=== PATIENT | female | born 1945 | race Caucasian/White ===

== ENCOUNTER → 2017-01-26 | Outpatient (CLI) | payer MEDICARE, BC | LOC: MC.RAD 07:00 | DX: Z12.31 Encounter for screening mammogram for malignant neoplasm of breast (principal) ==

== ENCOUNTER → 2018-02-24 | Outpatient (CLI) | payer MEDICARE, BC | LOC: MC.RAD 07:33 | DX: Z12.31 Encounter for screening mammogram for malignant neoplasm of breast (principal) ==

== ENCOUNTER 2018-11-03 06:06 | Inpatient (IN) | payer MEDICARE, BC ==
[~2018-11-03] VITALS: Ht 170.2 cm; Wt 83.5 kg
[2018-11-03] VITALS (309 sets, daily range): BP systolic 85–148; BP diastolic 61–98; PULSE 80–96; TEMP 98–98.7; O2SAT 90–100
[2018-11-03] MEDS ORDERED: PRINIVIL5 MG PO (06:29)
[2018-11-03 06:32] LABS: BASO % 0.3 % (0.0-2.0); EOS % 0.3 % (0-4.0); GRAN # 5.2 (1.4-6.5); GRAN % 82.2 % (42.2-75.2); HEMATOCRIT 39.8 % (37.0-47.0); HEMOGLOBIN 13.2 g/dl (12.5-16.0); LYMPH # 0.8 (1.2-3.4); LYMPH % 12.4 % (20.0-51.0); MEAN CELL VOLUME 96 fl (80.0-100.0); MEAN CORPUSCULAR HEMOGLOBIN 32 pg (27.0-31.0); MEAN CORPUSCULAR HGB CONC 33 g/dl (33.0-37.0); MEAN PLATELET VOLUME 11.4 fl (7.4-10.4); MONO # 0.3 (0.1-0.6); MONO % 4.3 % (1.7-9.3); PLATELET COUNT 183 K/mm3 (130-400); RED BLOOD COUNT 4.16 M/mm3 (4.10-5.30); REDCELL DISTRIBUTION WIDTH-CV 12.5 % (11.5-14.5)
[2018-11-03 06:40] LABS: INR 0.9 (0.8-3.0); PROTHROMBIN TIME 10.6 SECONDS (9.7-12.8)
[2018-11-03 06:42] LABS: PARTIAL THROMBOPLASTIN TIME 30.6 SECONDS (26.0-37.0)
[2018-11-03 06:59] LABS: ALBUMIN 3.8 gm/dL (3.5-5.0); BILIRUBIN,TOTAL 0.3 mg/dL (0.0-1.0); CALCIUM 8.2 mg/dL (8.4-10.2); CREATININE, serum 0.75 mg/dL (0.52-1.25); POTASSIUM 3.9 mmol/L (3.4-5.0); TOTAL PROTEIN 6.5 gm/dL (6.4-8.2)
[2018-11-03 07:17] LABS: TROPONIN-I 0.438 ng/mL (0.000-0.035)
--- NOTE | 2018-11-03 09:09 | NUR ---
Report received from ERNESTO Fontaine. Patient going to metallurgical laboratory assistant prior to coming to the ICU.
--- NOTE | 2018-11-03 09:33 | NUR ---
SEE EDWARD FOR ALL MEDICATION ADMIN TIMES AND RASS SCORING FOR INTRA AND POST SEDATION DOCUMENATION
--- NOTE | 2018-11-03 11:15 | NUR ---
Patient admitted to ICU#1 via bed from medical laboratory technologist. Right femoral groin site soft without hematoma, dressing with small amount of drainage noted, Safeguard in place. Patient instructed to keep head flat on pillow and right leg straight. Patient verbalized understanding. Assessment complete. Call light within reach.
--- NOTE | 2018-11-03 12:15 | NUR ---
earth science technical officer in room for echo.
--- NOTE | 2018-11-03 12:45 | NUR ---
Patient reports chest pain 3/10, back pain 4/10 and still nauseaous. Family at bedside. Dr. Hernandez was notified. O2 decreased to 13L/NRB.
--- NOTE | 2018-11-03 13:30 | NUR ---
Patient placed on OM at 7L, satting 93%.
--- NOTE | 2018-11-03 14:49 | NUR ---
Patient reports "not feeling any better."
--- NOTE | 2018-11-03 16:50 | NUR ---
Patient denies pain at this time, family at bedside. Call light within reach.
--- NOTE | 2018-11-03 17:06 | NUR ---
SW student met with the patient and patient's (Quang: nicolas Ramirez) and daughter. The patient lives in [place] with her . The patient was indpendent with ADLs prior to hospitalization and does not currently use any DME. The patient does have multiple walkers, canes, and a transfer chair available to her if needed. The patient's PCP is Dr. Deedee Tidwell and she receives her medications from [facility]. The patient reports no difficulties obtaining her meds. The patient states that she does have a DPOA-HC completed and they have copies at home and Dr. Tidwell's office should also have a copy. No identified needs at this time, SW to continue to follow.
--- NOTE | 2018-11-03 17:57 | NUR ---
Patient resting in bed visiting, denies needs at this time, call light within reach.
--- NOTE | 2018-11-03 19:05 | NUR ---
Bedside report received from ERNESTO Rodriguez. Patient care received.
--- NOTE | 2018-11-03 19:12 | NUR ---
Bedside report given to ERNESTO Rodriguez. All lines and gtt reviewed at this time.
--- NOTE | 2018-11-03 19:15 | NUR ---
Assisted patient up to the bathroom; Gait steady and stand by assist only needed. Able to have a BM at this time.
--- NOTE | 2018-11-03 23:45 | NUR ---
Groin site assessed; soft and non-tender. Small amount of light purple bruising noted to inner thigh. Quarter sized drainage noted to safeguard; remained unchanged since assessment at shift change. Safe-guard removed and replaced with guaze and tegederm. Denies any pain at this time.
[2018-11-04] VITALS (118 sets, daily range): BP systolic 103; BP diastolic 60; PULSE 81; TEMP 98.2; O2SAT 94–99
[2018-11-05 11:09] LABS: BASO % 0.1 % (0.0-2.0); GRAN # 6.6 (1.4-6.5); GRAN % 89.6 % (42.2-75.2); LYMPH # 0.5 (1.2-3.4); LYMPH % 7.4 % (20.0-51.0); MEAN CELL VOLUME 96 fl (80.0-100.0); MEAN CORPUSCULAR HEMOGLOBIN 32 pg (27.0-31.0); MEAN CORPUSCULAR HGB CONC 33 g/dl (33.0-37.0); MEAN PLATELET VOLUME 11.4 fl (7.4-10.4); MONO # 0.2 (0.1-0.6); MONO % 2.6 % (1.7-9.3); PLATELET COUNT 179 K/mm3 (130-400); RED BLOOD COUNT 3.74 M/mm3 (4.10-5.30); REDCELL DISTRIBUTION WIDTH-CV 12.8 % (11.5-14.5)
[2018-11-05 11:10] LABS: HEMATOCRIT 35.9 % (37.0-47.0)
[2018-11-05 11:24] LABS: CALCIUM 8.1 mg/dL (8.4-10.2); CREATININE, serum 0.66 mg/dL (0.52-1.25)
--- NOTE | 2018-11-05 13:22 | NUR ---
SW attended clinical rounds. The patient discharged back home with her on , 11/04. The patient was prescribed Brilinta. The hospitalist discussed the importance of taking the Brilinta and the risks associated with not taking it. The pharmacist provided the patient with a medication card for Brilinta. All questions from the family were answered. No additional needs at this time.
[2018-11-05] MEDS ORDERED: LIPITOR 40MG TA40 MG PO (14:13)
[2018-11-05] MEDS ORDERED: ASPIRIN 81M81 MG/TA2 PO (14:14)
[2018-11-05] MEDS ORDERED: BRILINTA90 MG PO (14:14)
[2018-11-05] MEDS ORDERED: TOPROL XL 25MG25 MG PO (14:14)
== END 2018-11-04 11:10 | disposition home or self-care (01) | DRG 246 ==
LOC: COL.ER 06:06 → ICU 07:43
PROVIDERS: Emergency Medicine
PROC: 0270346 Dilation of Coronary Artery, One Artery, Bifurcation, with Drug-eluting Intraluminal Device, Percutaneous Approach (ICD-10-PCS; principal; 2018-11-03)
PROC: 4A023N7 Measurement of Cardiac Sampling and Pressure, Left Heart, Percutaneous Approach (ICD-10-PCS; 2018-11-03)
PROC: B2111ZZ Fluoroscopy of Multiple Coronary Arteries using Low Osmolar Contrast (ICD-10-PCS; 2018-11-03)
PROC: B2151ZZ Fluoroscopy of Left Heart using Low Osmolar Contrast (ICD-10-PCS; 2018-11-03)
DX: I25.10 Atherosclerotic heart disease of native coronary artery without angina pectoris (principal); I21.4 Non-ST elevation (NSTEMI) myocardial infarction; I10 Essential (primary) hypertension; Z88.6 Allergy status to analgesic agent; Z88.0 Allergy status to penicillin; Z88.8 Allergy status to other drugs, medicaments and biological substances; R09.1 Pleurisy; J06.9 Acute upper respiratory infection, unspecified; M94.0 Chondrocostal junction syndrome [Tietze]
CPT/HCPCS: 99222-AI; 99223-AI; C1725; C1760; C1769; C1874; C1887; C1894; C9600; J0583; J2250; J2550; J3010; J7030; Q9967

== ENCOUNTER 2019-01-03 15:12 | Outpatient (RCR) | payer MEDICARE, BC ==
[~2019-01-03 15:12] MED LIST: ASPIRIN 81M81 MG/TA2 PO; BRILINTA90 MG PO; LIPITOR 40MG TA40 MG PO; PRINIVIL5 MG PO; TOPROL XL 25MG25 MG PO
== END 2019-02-15 | disposition home or self-care (01) ==
LOC: COL.CR
DX: Z48.812 Encounter for surgical aftercare following surgery on the circulatory system (principal); Z95.5 Presence of coronary angioplasty implant and graft

== ENCOUNTER → 2019-02-25 | Outpatient (CLI) | payer MEDICARE, BC | LOC: MC.RAD 07:34 | DX: Z12.31 Encounter for screening mammogram for malignant neoplasm of breast (principal) ==

== ENCOUNTER → 2020-02-28 | Outpatient (CLI) | payer MEDICARE, BC | LOC: MC.RAD 15:41 | DX: Z12.31 Encounter for screening mammogram for malignant neoplasm of breast (principal) ==

== ENCOUNTER → 2021-02-28 | Outpatient (CLI) | payer MEDICARE, BC | LOC: MC.RAD 12:59 | DX: Z12.31 Encounter for screening mammogram for malignant neoplasm of breast (principal) ==

== ENCOUNTER 2021-07-03 08:45 | Outpatient (RCR) | payer MEDICARE, BC | END 2021-08-15 | disposition home or self-care (01) | LOC: MKS.ESL.PT | DX: R10.2 Pelvic and perineal pain (principal) ==